=== PATIENT | female | born 1965 ===

== ENCOUNTER 2022-06-04 14:22 | Emergency (ER) | payer BC ==
[~2022-06-04] VITALS: Ht 162.6 cm; Wt 101.8 kg
[2022-06-04] MEDS ORDERED: CEPH-585 PO (16:34)
[2022-06-04] MEDS ORDERED: bacitracin 15gm ointment TP ONE (16:35)
[2022-06-04] MEDS ORDERED: cephalexin 250mg capsule PO ONE (16:35)
[2022-06-04] MEDS ORDERED: LIDOcaine 1% 30ml preserv. free vial IJ ONE (16:39)
[2022-06-04 17:07] VITALS: BP 155/67
== END 2022-06-04 17:36 | disposition home or self-care (01) ==
LOC: ER 14:23
DX: S61.412A Laceration without foreign body of left hand, initial encounter (principal); Z88.2 Allergy status to sulfonamides; Z91.040 Latex allergy status; Z79.899 Other long term (current) drug therapy; W01.0XXA Fall on same level from slipping, tripping and stumbling without subsequent striking against object, initial encounter; Y93.89 Activity, other specified; Y92.89 Other specified places as the place of occurrence of the external cause; Y99.8 Other external cause status
CPT/HCPCS: 12001; 99283; 99284